=== PATIENT | male | born 1995 | race Caucasian/White ===

== ENCOUNTER 2024-06-16 10:51 | Inpatient (IN) | payer MEDICARE, OTHER ==
[2024-06-16 11:20] VITALS: BMI 23.3
[2024-06-16] MEDS ORDERED: IBUPROFEN 400 MG TABLET (FP) PO PRN (11:56)
[2024-06-16] MEDS ORDERED: ONDANSETRON *ODT* 4 MG TABLET SL PRN (11:56)
[2024-06-16] MEDS ORDERED: guaiFENesin 600 MG TABLET.ER (FP) PO PRN (11:56)
[2024-06-16] MEDS ORDERED: LOPERAMIDE HCL 2 MG CAPSULE PO PRN (11:56)
[2024-06-16] MEDS ORDERED: IBUPROFEN 600 MG TABLET (FP) PO PRN (11:56)
[2024-06-16] MEDS ORDERED: MAGNESIUM HYDROX 2400MG/30ML ORAL SUSPENSION 30 ML CUP PO PRN (11:56)
[2024-06-16] MEDS ORDERED: BISMUTH SUBSALICYLATE 262 MG/15 ML BTL PO PRN (11:56)
[2024-06-16] MEDS ORDERED: NALOXONE (NARCAN) HCL 4 MG/0.1 ML SPRAY NS PRN (11:56)
[2024-06-16] MEDS ORDERED: BENZOCAINE/MENTHOL (CHLORASEPTIC ) LOZENGE MM PRN (11:56)
[2024-06-16] MEDS ORDERED: POLYETHYLENE GLYCOL (HEALTHYLAX) 3350 17 GM PACKET PO PRN (11:56)
[2024-06-16] MEDS ORDERED: BENZONATATE 200 MG CAPSULE PO PRN (11:56)
[2024-06-16] MEDS ORDERED: DICYCLOMINE HCL 10 MG CAPSULE PO PRN (11:56)
[2024-06-16] MEDS ORDERED: chlordiazePOXIDE HCL 25 MG CAPSULE PO PRN (11:56)
[2024-06-16] MEDS ORDERED: MAG HYDROX/AL HYDROX/SIMETH 30 ML UNIT-DOSE CUP PO PRN (11:56)
[2024-06-16] MEDS: chlordiazePOXIDE HCL 25 MG CAPSULE PO SCH (17:20)
[2024-06-16] MEDS: ACETAMINOPHEN 325 MG TABLET (FP) PO PRN (17:20)
[2024-06-16] MEDS: MELATONIN 5 MG TABLETS PO SCH (22:18)
[2024-06-16] MEDS: THIAMINE 100 MG TABLET PO SCH (22:18)
[2024-06-17] MEDS ORDERED: NALTREXONE HCL 50 MG TABLET PO ONE (10:00)
[2024-06-17] MEDS: PRENATAL VITAMINS W/ FOLIC ACID TABLET (FP) PO SCH (10:35)
[2024-06-17 11:33] LABS: HEMATOCRIT 47.8 % (40.1-51.0); HEMOGLOBIN 15.4 g/dL (13.7-17.5); MCHC 32.2 g/dl (32.3-36.5); MEAN CELL VOLUME 90.9 fl (79.0-92.2); MEAN PLT VOLUME 10.6 fl (9.4-12.4); PLATELET COUNT 294 x10^3/uL (163-337); RDW 12.9 % (12.0-15.6)
[2024-06-17 11:34] LABS: POTASSIUM 4.2 mmol/L (3.5-5.1)
[2024-06-17 11:38] LABS: ALBUMIN 4.2 g/dl (3.4-5.0); BLOOD UREA NITROGEN 7.6 mg/dL (7-18); CALCIUM 9.9 mg/dL (8.5-10.1)
[2024-06-17 11:42] LABS: CREATININE 0.7 mg/dL (0.55-1.3)
[2024-06-17 11:43] LABS: BILIRUBIN,TOTAL 0.7 mg/dL (0.2-1); TOT PROT 7.7 g/dl (6.4-8.2)
[2024-06-17] MEDS: MELATONIN 5 MG TABLETS PO SCH (22:26)
[2024-06-18] MEDS: chlordiazePOXIDE HCL 25 MG CAPSULE PO SCH (05:40)
[2024-06-18] MEDS ORDERED: NALTREXONE HCL 50 MG TABLET PO SCH (10:00)
[2024-06-18] MEDS: METHOCARBAMOL 500 MG TABLET PO PRN (22:39)
[2024-06-19] MEDS ORDERED: chlordiazePOXIDE HCL 10 MG CAPSULE PO PRN
[2024-06-19] MEDS: chlordiazePOXIDE HCL 10 MG CAPSULE PO SCH (05:49)
[2024-06-20] MEDS: chlordiazePOXIDE HCL 10 MG CAPSULE PO SCH (05:54)
[2024-06-20 17:57] VITALS: RESP 16
[2024-06-20] MEDS: hydrOXYzine PAMOATE 25 MG CAPSULE (FP) PO PRN (21:51)
[2024-06-21] MEDS: chlordiazePOXIDE HCL 10 MG CAPSULE PO ONE (05:42)
[2024-06-21 09:07] VITALS: BP 101/79; PULSE 94; TEMP 97.8
== END 2024-06-21 10:44 | disposition home or self-care (01) | DRG 775 ==
LOC: YASAS 10:51 → Y6N 12:55
PROVIDERS: ADMIT Allergy & Immunology; ATTEND Allergy & Immunology
PROC: HZ2ZZZZ Detoxification Services for Substance Abuse Treatment (ICD-10-PCS; principal; 2024-06-16)
DX: F10.230 Alcohol dependence with withdrawal, uncomplicated (principal); F17.210 Nicotine dependence, cigarettes, uncomplicated; F41.9 Anxiety disorder, unspecified; F32.A Depression, unspecified; R73.9 Hyperglycemia, unspecified
CPT/HCPCS: 36415; 80053; 80305; 80307; 85027; 86780; 93005; 93010